=== PATIENT | male | born 1955 | race African-American/Black ===

== ENCOUNTER → 2022-09-14 09:58 | Outpatient (BNVA) | payer MEDICARE, MEDICAID, SELFPAY | PROVIDERS: PCP Internal Medicine; Visit Provider Dietitian, Registered | DX: E11.9 Type 2 diabetes mellitus without complications (principal) | CPT/HCPCS: 97802 ==

== ENCOUNTER → 2022-12-31 09:16 | Outpatient (BNVA) | payer MEDICARE, MEDICAID, SELFPAY | PROVIDERS: PCP Internal Medicine; Visit Provider Dietitian, Registered | DX: E11.9 Type 2 diabetes mellitus without complications (principal); Z71.3 Dietary counseling and surveillance | CPT/HCPCS: 97803 ==

== ENCOUNTER 2023-06-30 09:25 | Outpatient (AMB) | payer MEDICARE, SELFPAY ==
[2023-06-30 09:32] VITALS: BMI 29.9
--- NOTE | 2023-06-30 09:32 | A.OFFVIS_ITS ---
Intake VS Expanded 06/30/23 09:32 Height 5 ft 10 in Weight 208 lb 5.389 oz BMI 29.9 Intake Visit Reasons: T2DM HPI Nutrition Presentation Details Pt presents for MNT follow up for T2DM Pt reports increasing in physical activity reports walking 3 1/2 miles per day Reports working on meal planning, 3 meals/day, reducing on portions of starchy foods Most Recent Diabetes Results: No Data to Display Assessment & Plan Assessment & Plan (1) T2DM (type 2 diabetes mellitus): Code(s): E11.9 - Type 2 diabetes mellitus without complications Plan Educate Pt on 1999 - 2099 renetta meal plan ? Pt's set goal (Date: 09/14/2022 ): reduce carb at bedtime to less than 20 g at follow up (Date: 12/31/21 ): met 25% , reports meeting 50% (06/2023) Used wt : 94 kg (09/15/2022) , remains 94 kg (06/2023) Est kcal as per MSJ: 2384-250 = 2134 (40% carb, 30% fat/prot) Est fluid needs: 2350 ml/d (25 ml/kg bw) Rec fiber: increase to 8-10 g per day and gradually increase to 35 g/d or as tolerated Rec Na: < 2000 mg /d Educate patient on: (R= Reviewed, V = verbalizes understanding N/R= Needs review N/A= not applicable) * Food sources of carbohydrates and serving adequate serving sizes : R * Difference between complex carbohydrates and simple carbohydrates, role of fiber: R * Differences between fats (MUFA/PUFA/saturated fats, trans fats) and food sources of various fats: R * Food sources of sodium and salt and healthy modifications for heart health and kidney health: R, V * Vitamins and minerals: N/R * How to interpret food labels: R * Healthy Plate method concept: R V * Physical activity: benefits and precaution: R V Patient Instructions: Continue working on Following healthy plate method Monitor your blood sugar 2 hours after a meal (goal 80-180 , unless otherwise specified by your doctor), Choose lower salt/lower carb sources of foods as bedtimes snack : ex 30 g carb: yogurt and 1/2 of fruit or fruit and and nuts or 1/2 sand and 1 cup of milk low in fat Continue with physical activity goal 150 minutes per week Coding Level of Care Code Nutr Indiv Subseq (22545) Diagnoses T2DM (type 2 diabetes mellitus) E11.9 Time Spent (min) 30
== END 2023-06-30 10:11 | disposition home or self-care (01) ==
PROVIDERS: PCP Internal Medicine; Visit Provider Dietitian, Registered
DX: E11.9 Type 2 diabetes mellitus without complications (principal)

== ENCOUNTER → 2023-06-30 09:25 | Outpatient (BNVA) | payer MEDICARE, MEDICAID, SELFPAY | PROVIDERS: Visit Provider Dietitian, Registered | DX: E11.9 Type 2 diabetes mellitus without complications (principal) | CPT/HCPCS: 97803 ==

== ENCOUNTER 2023-09-29 09:28 | Outpatient (AMB) | payer MEDICARE, SELFPAY ==
--- NOTE | 2023-09-29 09:42 | A.OFFVIS_ITS ---
Intake VS Expanded 09/29/23 09:42 Height 5 ft 10 in Weight 209 lb 3.499 oz BMI 30.0 Intake Visit Reasons: T2dm HPI Nutrition Presentation Details Pt presents for MNT follow up for T2DM Pt reports doing ok. Has had challenges with diet modification related to travels. Pt did not bring glucometer to this appt to review, Pt reports monitoring in the fasting state , bg may range from 100s to 150s Most Recent Diabetes Results: No Data to Display Assessment & Plan Assessment & Plan (1) T2DM (type 2 diabetes mellitus): Code(s): E11.9 - Type 2 diabetes mellitus without complications Plan Educate Pt on 1999 - 2099 renetta meal plan ? Pt's set goal (Date: 09/14/2022 ): reduce carb at bedtime to less than 20 g at follow up (Date: 12/31/21 ): met 25% , reports meeting 50% (06/2023) Used wt : 94 kg (09/15/2022) , remains 94 kg (06/2023) remains 09/2023 Est kcal as per MSJ: 2384-250 = 2134 (40% carb, 30% fat/prot) Est fluid needs: 2350 ml/d (25 ml/kg bw) Rec fiber: increase to 8-10 g per day and gradually increase to 35 g/d or as tolerated Rec Na: < 2000 mg /d Educate patient on: (R= Reviewed, V = verbalizes understanding N/R= Needs review N/A= not applicable) * Food sources of carbohydrates and serving adequate serving sizes : R * Difference between complex carbohydrates and simple carbohydrates, role of fiber: R * Differences between fats (MUFA/PUFA/saturated fats, trans fats) and food sources of various fats: R * Food sources of sodium and salt and healthy modifications for heart health and kidney health: R, V * Vitamins and minerals: R * How to interpret food labels: R * Healthy Plate method concept: R V * Physical activity: benefits and precaution: R V Patient Instructions: Include foods with anti inflammatory properties: jareth, garlic, fruits, vegetables keep hydrated by having water with meals, low sugar beverages , tea, milk, broth monitor your blood glucose 2 hours after a meal (goal 80-180 or lower 80-140s) contact your provider if blood sugar above recommended level for further asessment Coding Level of Care Code Nutr Indiv Subseq (07760) Diagnoses T2DM (type 2 diabetes mellitus) E11.9 Time Spent (min) 30
== END 2023-09-29 10:06 | disposition home or self-care (01) ==
PROVIDERS: PCP Internal Medicine; Visit Provider Dietitian, Registered
DX: E11.9 Type 2 diabetes mellitus without complications (principal)

== ENCOUNTER → 2023-09-29 09:28 | Outpatient (BNVA) | payer MEDICARE, SELFPAY | PROVIDERS: PCP Internal Medicine; Visit Provider Dietitian, Registered | DX: E11.9 Type 2 diabetes mellitus without complications (principal) | CPT/HCPCS: 97803 ==

== ENCOUNTER 2024-03-29 09:24 | Outpatient (AMB) | payer MEDICARE, MEDICAID, SELFPAY ==
--- NOTE | 2024-03-29 09:43 | A.OFFVIS_ITS ---
VS Expanded 03/29/24 09:44 Height 5 ft 10 in Weight 208 lb 5.389 oz BMI 29.9 Intake Visit Reasons: T2DM Nutrition Presentation Details: Pt presents for MNT f/u for T2dM Pt reports doing well on metformin 500 mg 4 tabs per day [id number]: fish 1/wk and nuts and seeds almond /cashew milk and kale/smoothies /banana and protein whey isolate once a day physically active - 3 1/2 miles daily A1c % 7.4% 2 weks ago (Dr Downs) BS Monitoring Most Recent Diabetes Results: No Data to Display Assessment & Plan Assessment & Plan (1) T2DM (type 2 diabetes mellitus): Code(s): E11.9 - Type 2 diabetes mellitus without complications Category: Medical Plan Educate Pt on 1999 - 2099 renetta meal plan ? Used wt : 94 kg (09/15/2022) , remains 94 kg (06/2023) remains 09/2023, remains Est kcal as per MSJ: 2384-250 = 2134 (40% carb, 30% fat/prot) Est fluid needs: 2350 ml/d (25 ml/kg bw) Rec fiber: increase to 8-10 g per day and gradually increase to 35 g/d or as tolerated Rec Na: < 2000 mg /d Educate patient on: (R= Reviewed, V = verbalizes understanding N/R= Needs review N/A= not applicable) * Food sources of carbohydrates and serving adequate serving sizes : R ,v * Difference between complex carbohydrates and simple carbohydrates, role of fiber: R ,v * Differences between fats (MUFA/PUFA/saturated fats, trans fats) and food sources of various fats: R,v * Food sources of sodium and salt and healthy modifications for heart health and kidney health: R, V * Vitamins and minerals: R * How to interpret food labels: R ,v * ETOH and BG: R, V * Healthy Plate method concept: R V * Physical activity: benefits and precaution: R V Patient Instructions: -Include omega 3 fatty acids in your diet (seeds, nuts, fish , algae) a serving daily Continue working on following healthy plate method Coding Level of Care Code Nutr Indiv Subseq ([id number]) Diagnoses T2DM (type 2 diabetes mellitus) E11.9 Time Spent (min) 30
[2024-03-29 09:44] VITALS: BMI 29.9
== END 2024-03-29 10:42 | disposition home or self-care (01) ==
PROVIDERS: PCP Internal Medicine; Visit Provider Dietitian, Registered
DX: E11.9 Type 2 diabetes mellitus without complications (principal)

== ENCOUNTER → 2024-03-29 09:24 | Outpatient (BNVA) | payer MEDICARE, SELFPAY | PROVIDERS: PCP Internal Medicine; Visit Provider Dietitian, Registered | DX: E11.9 Type 2 diabetes mellitus without complications (principal) | CPT/HCPCS: 97803 ==